=== PATIENT | female | born 1935 | race Caucasian/White ===

== ENCOUNTER 2016-10-24 06:26 | Day surgery (SDC) | payer OTHER ==
[~2016-10-24] VITALS: Ht 161.3 cm; Wt 58.2 kg
[~2016-10-24 06:26] MED LIST: ASPIRIN81 M2 PO; BIOTIN 5000MCG PO; BONINE25 MG PO; CALTRATE 600 +1 EAC1 PO; CENTRUM SILVER1 EAC4 PO; CHOLEST OFF450 MG PO; GLUCOSAMINE &1 EAC1 PO; LIPITOR20 MG PO; METOPROLOL TART25 MG PO; METRO GEL 1%60 GM TP; PROBIOTIC1 EAC1 PO; TRAVATAN Z5 ML LEFT EYE
[2016-10-24 07:44] VITALS: BP 149/69
[2016-10-24 11:00] VITALS: BP 129/63
[2016-10-24 12:13] VITALS: BP 120/60
== END 2016-10-24 12:30 | disposition home or self-care (01) ==
LOC: SDC 06:26
DX: H35.341 Macular cyst, hole, or pseudohole, right eye (principal); H33.311 Horseshoe tear of retina without detachment, right eye; I47.1 Supraventricular tachycardia; Z79.82 Long term (current) use of aspirin; Z85.038 Personal history of other malignant neoplasm of large intestine
CPT/HCPCS: J0131; J0690; J0713; J1100; J1885; J2405; J3010

== ENCOUNTER 2017-01-11 19:29 | Emergency (ER) | payer OTHER ==
[~2017-01-11] VITALS: Ht 160 cm; Wt 59.5 kg
[~2017-01-11 19:29] MED LIST changes: +KENALOG-1010 MG/1 ML IA
[2017-01-11] MEDS ORDERED: NORCO 5/3251 TABLET PO (21:59)
[2017-01-11 22:09] VITALS: BP 112/67
== END 2017-01-11 22:10 | disposition home or self-care (01) ==
LOC: EME 19:29
PROC: 2W39X1Z Immobilization of Left Upper Extremity using Splint (ICD-10-PCS; principal; 2017-01-11)
DX: S42.402A Unspecified fracture of lower end of left humerus, initial encounter for closed fracture (principal); S60.222A Contusion of left hand, initial encounter; S60.00XA Contusion of unspecified finger without damage to nail, initial encounter; X58.XXXA Exposure to other specified factors, initial encounter; M79.89 Other specified soft tissue disorders; Z79.82 Long term (current) use of aspirin
CPT/HCPCS: 93971; 99281; 99284

== ENCOUNTER 2017-01-14 07:49 | Day surgery (SDC) | payer OTHER ==
[~2017-01-14] VITALS: Ht 160 cm; Wt 57.0 kg
[~2017-01-14 07:49] MED LIST changes: +NORCO 5/3251 TABLET PO
[2017-01-14 08:28] VITALS: BP 148/67
[2017-01-14 08:57] LABS: ANION GAP 5 MEQ/L (2-14); CHLORIDE 103 MEQ/L (99-109); GFR ESTIMATE (CALCULATED) > 59 mL/min/; GLUCOSE 103 mg/dL (70-99); POTASSIUM 4.2 MEQ/L (3.7-5.4); SAMPLE HEMOLYSIS CHECK 0; SAMPLE ICTERIC CHECK 0; SAMPLE LIPEMIA CHECK 0; SODIUM 139 MEQ/L (136-147); UREA NITROGEN (BUN) 21 mg/dL (9-23)
[2017-01-14 12:15] VITALS: BP 128/62
[2017-01-14 13:10] VITALS: BP 125/61
== END 2017-01-14 13:23 | disposition home or self-care (01) ==
LOC: SDC 07:49
PROVIDERS: Orthopaedic Surgery
PROC: 0PSL04Z Reposition Left Ulna with Internal Fixation Device, Open Approach (ICD-10-PCS; principal; 2017-01-14)
DX: S52.032A Displaced fracture of olecranon process with intraarticular extension of left ulna, initial encounter for closed fracture (principal); W01.0XXA Fall on same level from slipping, tripping and stumbling without subsequent striking against object, initial encounter; Y93.01 Activity, walking, marching and hiking; Y92.008 Other place in unspecified non-institutional (private) residence as the place of occurrence of the external cause; R73.03 Prediabetes; E78.00 Pure hypercholesterolemia, unspecified; Z85.038 Personal history of other malignant neoplasm of large intestine; Z79.82 Long term (current) use of aspirin
CPT/HCPCS: 73070; 76000; 80048; J0330; J0690; J1100; J1170; J2405; J3010; S0020